=== PATIENT | male | born 1955 | race Caucasian/White ===

== ENCOUNTER 2018-06-09 07:05 | Observation (INO) | payer BC ==
[2018-06-09] MEDS ORDERED: Ketorolac INJ* 30 MG/ML 1 ML VIAL IV PUSH ONE (07:27)
[2018-06-09] MEDS ORDERED: NS 0.9% 1000 ML* 1,000 ML IV ONE ×2 (07:27→09:55)
[2018-06-09] MEDS ORDERED: Ondansetron INJ* 2 MG/ML VIAL IV ONE ×2 (07:27→10:53)
[2018-06-09] MEDS ORDERED: Ketorolac INJ* 30 MG/ML 1 ML VIAL ONE (07:30)
[2018-06-09] MEDS ORDERED: Ondansetron INJ* 2 MG/ML VIAL ONE ×4 (07:30→20:19)
--- NOTE | 2018-06-09 07:34 | ED ---
GI/ HPI - HPI Summary HPI Summary: Patient is a 63 y/o M w/ c/o possible kidney stone. In room, he reports RLQ pain and some nausea, denies groin pain, back pain, dysuria, hematuria. Pain onset 2300 yesterday. Pain is noted to wax and wane but is always present. Patient reports pain was "bad" last night and that he could not sleep due to pain. Pain has lessened since onset. He reports Hx of kidney stones x3-4 times previously. Kidney stones are reported to have passed by themselves previously. Patient's , who was present in room, reports giving patient ibuprofen at 0115 today and 5 mg oxycodone at 0600. Patient denies smoking and any home medications. He denies FMHx of renal disease. Patient has appointment with Dr. Cope at 0900 today, patient is here for pain control. On triage, pain is rated 9/10, nothing is noted to aggravate/alleviate Sx. Allergies reviewed. - History of Current Complaint Chief Complaint: EDAbdPain Time Seen by Provider: 06/09/18 07:19 Stated Complaint: RT FLANK PAIN Hx Obtained From: Patient Onset/Duration: Started Hours Ago - onset 2300 last night, Still Present Timing: Constant - pain waxes and wanes but is reported to be always present Current Severity: Severe - 9/10 Pain Intensity: 9 Location of Pain: RLQ Associated Signs and Symptoms: Positive: Nausea, Abdominal Pain - RLQ, Other: - NEGATIVE: groin pain. Negative: Back Pain, Hematuria, Dysuria Aggravating Factor(s): Nothing Alleviating Factor(s): Nothing - Allergy/Home Medications Allergies/Adverse Reactions: Allergies Allergy/AdvReac Type Severity Reaction Status Date / Time No Known Allergies Allergy Verified 06/09/18 07:13 Home Medications: Home Medications Ibuprofen TAB* [Advil TAB*] 600 mg PO Q6H PRN 06/09/18 [History Confirmed ] buPROPion HCl [Bupropion Xl] 150 mg PO DAILY 06/09/18 [History Confirmed ] oxyCODONE TAB* [Roxycodone TAB 5 mg*] 5 mg PO Q8H PRN 06/09/18 [History Confirmed 06/09/18] PMH/Surg Hx/FS Hx/Imm Hx History: Reports: Hx Kidney Stones Sensory History: Denies: Hx Legally Blind Opthamlomology History: Denies: Hx Legally Blind Infectious Disease History: No Infectious Disease History: Denies: Traveled Outside the [place] in Last 30 Days - Family History Known Family History: Negative: Renal Disease - Social History Alcohol Use: Rare Substance Use Type: Reports: None Smoking Status (MU): Never Smoked Tobacco Review of Systems Positive: Abdominal Pain - RLQ, Nausea Positive: other - POSITIVE: patient reports possible kidney stone NEGATIVE: groin pain . Negative: dysuria, hematuria Positive: Other - NEGATIVE: back pain All Other Systems Reviewed And Are Negative: Yes Physical Exam - Summary Physical Exam Summary: Appearance: Well appearing, no pain distress Skin: warm, dry, reflects adequate perfusion Head/face: normal Eyes: EOMI, ESCOBAR ENT: mucous membranes moist Neck: supple, non-tender Respiratory: some rustling breath sounds at lung bases present, no other abnormal findings noted. Cardiovascular: RRR, pulses symmetrical Abdomen: non-tender, soft Bowel Sounds: present Musculoskeletal: strength/ROM intact; right CVA tenderness is noted. Neuro: normal, sensory motor intact, A&Ox3 Triage Information Reviewed: Yes Vital Signs On Initial Exam: Initial Vitals Temp Pulse Resp BP Pulse Ox 97.4 F 56 16 130/77 100 06/09/18 07:09 06/09/18 07:09 06/09/18 07:09 06/09/18 07:09 06/09/18 07:09 Vital Signs Reviewed: Yes Diagnostics - Vital Signs Vital Signs Temp Pulse Resp BP Pulse Ox 06/09/18 07:09 97.4 F 56 16 130/77 100 - Laboratory Result Diagrams: 06/09/18 07:36 06/09/18 07:36 Lab Statement: Any lab studies that have been ordered have been reviewed, and results considered in the medical decision making process. - CT CT abd/pel CT Interpretation: Positive (See Comments) CT Interpretation Completed By: Radiologist - IMPRESSION: THERE ARE MULTIPLE SMALL BILATERAL RENAL CALCULI. IN ADDITION THERE IS MILD TO MODERATE RIGHT HYDRONEPHROSIS WITH DISTENTION OF THE RIGHT URETER INTO THE PELVIS. THE RIGHT URETER IS NOT WELL-DEFINED DISTALLY ALTHOUGH THERE IS A PROMINENT CALCIFICATION IN THE PELVIS IN THE DISTRIBUTION OF THE URETER POSSIBLY REPRESENTING A DISTAL URETERAL CALCULUS VERSUS A PHLEBOLITH. A RENAL AND BLADDER ULTRASOUND WITH ASSESSMENT OF THE URETEROVESICAL JETS MAYBE HELPFUL IN FURTHER DEFINITION. THIS REPORT WAS REVIEWED BY ED PHYSICIAN. - Ultrasound No standard instances Ultrasound Interpretation: Positive (See Comments) Ultrasound Interpretation Completed By: Radiologist - ABDOMEN/BLADDER US IMPRESSION: #. RIGHT hydronephrosis is traced to a 0.9 cm far distal ureteral stone with corresponding absence of the RIGHT ureteral jet. This report was reviewed by ed physician. Re-Evaluation - Re-Evaluation First Eval Re-Evaluation Time: 08:20 Comment: Patient reports that pain has worsened after lessening briefly; he also states nausea has returned. Additional medications ordered Second Eval Re-Evaluation Time: 10:07 Change: Unchanged Comment: Discussed results of labs and tests with patient; he will be given an ultrasound Third Eval Re-Evaluation Time: 11:57 Change: Unchanged Comment: Patient informed of decision to admit to [facility]; patient understands and is agreeable with this plan. GIGU Course/Dx - Course Course Of Treatment: Patient with history of renal colic presents with right- sided abdominal pain without hematuria. CT scan shows hydronephrosis on that side with possible urinary calculus seen in the pelvis. It was difficult to delineate if this was calculus versus phlebolith. No ultrasound was obtained. There is no blood in the urine. Ultrasound indicates that there is no ureteral jet on that right side and concern for a stone at the UVJ. This was communicated to urology who will see the patient in consultation. They wished for the patient to be admitted through hospitalist service. The hospitalist was contacted and will admit. - Diagnoses Differential Diagnoses - Male: Other - Appendicitis, renal colic, bowel obstruction, UTI/prostatitis, colitis Provider Diagnoses: Renal colic on right side, Obstructive uropathy, Calculi, urethra - Physician Notifications Discussed Care Of Patient With: Gerardo Alston Time Discussed With Above Provider: 11:40 Instructed by Provider To: Other - Patient's case was discussed with Dr. Alston at 1140; he recommends patient be admitted to [facility]. 1151 -- Patient's case discussed with Dr. Duenas. Dr. Duenas accepts patient for admission to [facility]. Discharge - Sign-Out/Discharge Documenting (check all that apply): Patient Departure - admit - Discharge Plan Condition: Good Disposition: ADMITTED TO [facility] - Billing Disposition and Condition Condition: GOOD Disposition: Admitted to [facility] - Attestation Statements Document Initiated by Scribe: Yes Documenting Scribe: Konrad Garcia Provider For Whom Yong is Documenting (Include Credential): Jaime Finch MD Scribe Attestation: IKonrad, scribed for Jaime Finch MD on 06/09/18 at 1441. Scribe Documentation Reviewed: Yes Provider Attestation: The documentation as recorded by the Konrad noriega accurately reflects the service I personally performed and the decisions made by me, Jaime Finch MD
[2018-06-09 07:42] LABS: ABS Basophils 0 10^3/ul (0-0.2); ABS Eosinophils 0 10^3/ul (0-0.6); ABS Lymphocytes 0.6 10^3/ul (1.0-4.8); ABS Monocytes 0.4 10^3/ul (0-0.8); ABS Neutrophils 5.9 10^3/ul (1.5-7.7); ABS Nucleated RBC 0 10^3/ul; Eosinophil % 0.1 % (0-6); Hematocrit 44 % (42-52); Hemoglobin 15.3 g/dl (14.0-18.0); Lymphocyte % 9.1 % (25-47); Mean Corpuscular HGB Conc 35 g/dl (31-36); Mean Corpuscular Hemoglobin 32 pg (27-31); Mean Corpuscular Volume 93 fL (80-94); Mean Platelet Volume 10.2 um3 (7.4-10.4); Nucleated Red Blood Cells % 0.1; Platelet Count 152 10^3/ul (150-450); Red Blood Count 4.76 10^6/ul (4.00-5.40); Red Cell Distribution Width 12 % (10.5-15); White Blood Count 6.9 10^3/ul (3.5-10.8)
[2018-06-09 07:57] LABS: Urine Appearance Clear; Urine Blood Negative (Negative); Urine Color Yellow; Urine Ketones 1+ (Negative); Urine Protein Negative (Negative); Urine Specific Gravity 1.021 (1.010-1.030); Urine Urobilinogen Negative (Negative)
[2018-06-09] MEDS ORDERED: Morphine INJ* 2 MG/ML 1 ML SYRINGE (TWO MG - NEW SYRINGE VERSION) IV ONE (08:21)
[2018-06-09] MEDS ORDERED: Morphine INJ* 4 MG/ML 1 ML SYRINGE (NEW SYRINGE VERSION) ONE (08:27)
--- NOTE | 2018-06-09 09:18 | RAD ---
INDICATION: Right renal colic. COMPARISON: Comparison is made with a prior CT of the abdomen and pelvis from February 16, 2005. TECHNIQUE: A CT scan of the abdomen and pelvis was performed without intravenous and without oral contrast. Contiguous axial sections were obtained from the lung bases through the symphysis pubis. Images were reconstructed in the coronal and sagittal planes. FINDINGS: LUNGS: There is mild dependent bilateral lower lobe subsegmental atelectasis. No pleural effusion is present. LIVER: The liver is normal in size and density. There are several fluid density lesions in the lateral segment of the left hepatic lobe 2 of these are present on the prior exam and have increased in size when is new. These measure up to 1.5 cm in size and are nonspecific finding although likely represent cysts. These can BE further evaluated with a right upper quadrant ultrasound as clinically needed. GALLBLADDER: No calcified gallstones are seen. BILE DUCTS: No intra or extrahepatic ductal distention is appreciated. SPLEEN: The spleen is normal in size without significant focal abnormality. PANCREAS: The pancreas is normal in size. No ductal distention or calcifications are seen. ADRENAL GLANDS: The adrenal glands are normal in size. KIDNEYS: The kidneys are normal in size. There are multiple small bilateral renal calculi measuring between 1 and 3 mm in size. There is dilatation of the right renal calyces, renal pelvis and right ureter which appears dilated at least into the pelvis although is not well visualized distally. There is a large calcification present laterally within the pelvis on the right side measuring 7 x 5 mm in size possibly representing a calculus in the distal ureter alternatively this may be outside of the ureter. There is mild right perinephric stranding. No bladder calculi are seen. AORTA: There is mild ectasia of the abdominal aorta and iliac arteries. LYMPH NODES: No significantly enlarged lymph nodes are seen. BOWEL: The stomach, small and large bowel appear nondistended. The appendix is not well visualized. There is no evidence for inflammatory change in the right lower quadrant. There is a moderate to large amount retained stool. PELVIC ORGANS: No bladder wall thickening is seen. The seminal vesicles appear enlarged bilaterally and unchanged from the prior study. The prostate gland is slightly enlarged measuring 4.8 cm in transverse dimension. PERITONEUM: No free intraperitoneal air or fluid is seen. BONES: There is no evidence for acute fracture. There is suggestion of an old fracture of the left lateral acetabular rim. There is mild to moderate bilateral osteoarthritic change in the hips. IMPRESSION: THERE ARE MULTIPLE SMALL BILATERAL RENAL CALCULI. IN ADDITION THERE IS MILD TO MODERATE RIGHT HYDRONEPHROSIS WITH DISTENTION OF THE RIGHT URETER INTO THE PELVIS. THE RIGHT URETER IS NOT WELL-DEFINED DISTALLY ALTHOUGH THERE IS A PROMINENT CALCIFICATION IN THE PELVIS IN THE DISTRIBUTION OF THE URETER POSSIBLY REPRESENTING A DISTAL URETERAL CALCULUS VERSUS A PHLEBOLITH. A RENAL AND BLADDER ULTRASOUND WITH ASSESSMENT OF THE URETEROVESICAL JETS MAYBE HELPFUL IN FURTHER DEFINITION.
[2018-06-09] MEDS ORDERED: Morphine INJ** 4 MG/ML 1 ML CARPUJECT IV ONE (10:53)
--- NOTE | 2018-06-09 12:07 | RAD ---
Indication: RIGHT flank pain. Assess RIGHT ureteral jet. Comparison: June 09, 2018 CT. Technique: Ultrasound kidneys and urinary bladder. Report: 12.8 x 5.0 x 4.9 cm RIGHT kidney is remarkable for mild hydronephrosis traced to a visualized 0.9 cm maximum dimension far distal RIGHT ureteral stone approximate 1.5 cm from the ureterovesicular junction with corresponding absence of RIGHT ureteral jet. Additional small hyperechoic foci throughout the RIGHT kidney consistent with small renal stones. Normal cortical thickness and echogenicity. Small volume of perinephric fluid near the inferior pole. 12.4 x 6.0 x 4.6 cm LEFT kidney with normal cortical thickness and echogenicity is remarkable for a 0.8 cm cortical medullary junctions cyst inferiorly. No conspicuous LEFT renal stones or hydronephrosis. Preserved LEFT ureteral jet. Prevoid urinary bladder volume estimated at 211 mL. 2.2 mm bladder wall. No focal bladder lesions evident. 4.3 x 3.3 x 4.2 cm prostate for an estimated volume of 31 mL. IMPRESSION: #. RIGHT hydronephrosis is traced to a 0.9 cm far distal ureteral stone with corresponding absence of the RIGHT ureteral jet.
[2018-06-09] MEDS ORDERED: Morphine INJ* 2 MG/ML 1 ML SYRINGE (TWO MG - NEW SYRINGE VERSION) IV PRN ×2 (12:39→14:57)
[2018-06-09] MEDS ORDERED: Ondansetron INJ* 2 MG/ML VIAL IV PRN (12:39)
[2018-06-09] MEDS ORDERED: Morphine INJ* 4 MG/ML 1 ML SYRINGE (NEW SYRINGE VERSION) IV PRN (12:43)
[2018-06-09] MEDS ORDERED: NS 0.9% 1000 ML* 1,000 ML IV SCH (12:45)
[2018-06-09] MEDS ORDERED: Buffered Lidocaine 0.9% SYRIN* 5 ML/SYR SYRINGE INTRADERM ONE (14:55)
[2018-06-09] MEDS ORDERED: Dexamethasone TAB* 4 MG PO ONE (14:55)
[2018-06-09] MEDS ORDERED: Famotidine IV* 10 MG/ML 2 ML (20 mg) IV ONE (14:55)
[2018-06-09] MEDS ORDERED: oxyCODONE/Acetamin 5/325 MG* TAB PO PRN (14:57)
[2018-06-09] MEDS ORDERED: Naloxone* 0.4 MG/ML 1 ML VIAL IV PRN (14:57)
[2018-06-09] MEDS ORDERED: PROCHLORPERAZINE INJ 5 MG/ML 2 ML VIAL IV PRN (14:57)
[2018-06-09] MEDS ORDERED: DiMENhydriNATE IV* 50 MG/ML VIAL IV PUSH PRN (14:57)
[2018-06-09] MEDS ORDERED: fentaNYL* 50 MCG/ML 2 ML VIAL (100 MCG VIAL) IV PRN (14:57)
--- NOTE | 2018-06-09 15:12 | HP ---
ADMISSION HISTORY AND PHYSICAL: DATE OF ADMISSION: 06/09/18 PRIMARY CARE PROVIDER: Dr. Cope. HEALTHCARE PROXY: His . CODE STATUS: Full. SOURCE OF INFORMATION: History obtained from interview with the patient and his , review of past medical records. RELIABILITY: Good. CHIEF COMPLAINT: Right flank pain. HISTORY OF PRESENT ILLNESS: This is a 63-year-old man with past medical history of multiple kidney stones, approximately 3 to 4 times, last episode was 14 to 15 years prior without history of needing stents, they have always passed spontaneously. He has been in his usual state of health until approximately 1.5 months prior to presentation when he started to notice fleeting pain in his right groin that radiated to his penis and then back to his anus that would last for seconds. His pain would occur several times per week and actually resolved over the last 1-1/2 weeks; however, returned yesterday morning and was more intense. The patient's pain was still fleeting, lasted only for seconds; however, around 11 p.m. on 06/08/18, the pain became suddenly severe and constant, still described as right flank pain radiating to his penis and back to his anus. The pain remained there, did not travel. It was described as excruciating sore, aching, and a pressure, and was associated with nausea, vomiting with emesis approximately 20 times overnight. He attempted to have tea or water or any type of food and would vomit immediately. He also felt like he needed to have bowel movement but could not produce a stool. He describes no chest pain, shortness of breath, cough, fevers, which were checked at home, only 97 degrees Fahrenheit. No diaphoresis but did have 1 episode of brief chills that improved with closing the window and getting under a blanket. The pain is in the same side as his previous episodes of nephrolithiasis. He presented to the emergency room, where there was evidence for a distal obstructing nephrolithiasis. He received morphine and Zofran with good relief of pain and the hospitalist service was consulted for admission. PAST MEDICAL HISTORY: Kidney stones multiple times, last episode was 14 to 15 years prior. History of anxiety and history of depression. MEDICATIONS: Wellbutrin 150 mg daily. ALLERGIES: None. FAMILY HISTORY: His sister recently had nephrolithiasis. He has no additional data other than that. His father from a CVA at age 85. SOCIAL HISTORY: He is an active CPA. No tobacco. Rare alcohol, 1 time every several months. He is . REVIEW OF SYSTEMS: As per HPI including right flank pain. No , chest pain , shortness breath, lightheadedness, disequilibrium, headache. All other systems were reviewed and negative. PHYSICAL EXAMINATION GENERAL: Sitting up in bed, interactive, pleasant, in no apparent distress. VITAL SIGNS: In the emergency room, 124/77, respiratory rate 16, heart rate is 60, T-max is 99.6 at 10 a.m., and he is 100% on room air. HEENT: His oropharynx is mildly dry, but clear. He has no scleral icterus. NECK: Non-elevated JVD. No carotid bruits. LUNGS: Clear to auscultation. HEART: He has regular rate and rhythm. No murmurs, rubs, or gallops. ABDOMEN: Soft to palpation. No pain in the area that he identified earlier. EXTREMITIES: Warm and well perfused without clubbing, cyanosis, or edema. NEUROLOGIC: He is alert and oriented x3. His cranial nerves II through XII are intact. He has no CVA tenderness on my exam. DIAGNOSTIC STUDIES/LAB DATA: Labs reviewed: Notable for white blood cell count of 6.9, hemoglobin 15.3, platelets 152. Sodium 137, potassium 4.5, BUN 21 , creatinine is 1.2, glucose 137, lactic acid 1.3. CRP less than 1. Urine is positive for ketones and ascorbic acid. Data reviewed: CT abdomen and pelvis, impression: There are multiple small bilateral renal calculi. In addition, there is a moderate right hydronephrosis with distention of the right ureter into the pelvis. The right ureter is now well-defined distally though there is a prominent calcification in the pelvis in the distribution of the ureter possibly representing a distal ureteral calculus versus a phlebolith. Renal and bladder ultrasound may be helpful. Further report indicates there is a large calcification present laterally within the pelvis on the right side measuring 7 x 5 mm in size. Ultrasound abdomen and bladder, impression: Right hydronephrosis is traced to a 0.9-cm far distal ureteral stone with corresponding absence of right ureteral jet. ASSESSMENT AND PLAN: This is a 63-year-old man with recurrent nephrolithiasis presenting with right flank pain, nausea, and vomiting, found with suspected distal right nephrolithiasis with absence of right ureteral jet. 1. Hydronephrosis, right sided - in the setting of nephrolithiasis, 9-mm stone less likely to pass, although it is distal. His pain has improved, although with substantial amount of morphine. Dr. Alston from Urology has been consulted by the ED. He is currently in the operating room, he will evaluate when capable. Maintain the patient n.p.o. Deliver normal saline at 150 cc per hour for 2 additional liters. Hold on alpha blockers at this time prior to determining whether he will go to the operating room today. Strain urine should he pass the stone. Continue with pain control morphine 4 mg every 4 hours IV and Zofran 4 mg IV as needed, to increase as needed. Care discussed with the patient. 2. Depression and anxiety: Continue home Wellbutrin. 3. DVT prophylaxis. SCDs. Initiate heparin subcu tomorrow should he go to the operating room. TIME SPENT: Greater than 45 minutes was spent in admission of this patient of which greater than half was spent [id number] with the patient. [id number]/CPS #: [id number] JOSEFINA
[2018-06-09] MEDS ORDERED: fentaNYL* 50 MCG/ML 2 ML VIAL (100 MCG VIAL) ONE (17:09)
[2018-06-09] MEDS ORDERED: KETAMINE HCL* 50 MG/ML 10 ML VIAL ONE (17:10)
[2018-06-09] MEDS ORDERED: Midazolam* 1 MG/ML 5 ML VIAL (5 MG) ONE (17:10)
[2018-06-09] MEDS ORDERED: Iohexol 180 (CONTRAST) 10 ML SDV IV ONE (18:19)
[2018-06-09] MEDS ORDERED: cefTRIAXone(*) 1 GM ADVAN/BAG ONE (18:37)
[2018-06-09] MEDS ORDERED: EPHEDrine (Pressors)* 50 MG/ML VIAL ONE (19:07)
[2018-06-09] MEDS ORDERED: Famotidine IV* 10 MG/ML 2 ML (20 mg) ONE (19:07)
[2018-06-09] MEDS ORDERED: Propofol* 10 MG/ML 20 ML BTL IV PUSH ONE (19:07)
[2018-06-09] MEDS ORDERED: PROCHLORPERAZINE INJ 5 MG/ML 2 ML VIAL ONE (19:07)
[2018-06-09] MEDS ORDERED: Glycopyrrolate IV* 0.2 MG/ML 1 ML VIAL ONE (19:07)
[2018-06-09 21:34] VITALS: BP 122/77
--- NOTE | 2018-06-10 07:28 | RAD ---
INDICATION: Stent placement. COMPARISON: Correlation is made with a prior CT of the abdomen and pelvis and a prior renal and bladder ultrasound from June 09, 2018. TECHNIQUE: 7 seconds of intermittent fluoroscopic guidance were provided and 6 spot films of the abdomen were centered on the right side. FINDINGS: There is partial opacification of the right renal collecting system. Subsequently there is placement of a double-J stent catheter on the right side which demonstrates normal course. IMPRESSION: INTRAOPERATIVE CONTROL FILMS. CPT II Codes: G9500 R4
[2018-06-10] MEDS ORDERED: BuPROPion XL* 150 MG TAB.XL PO SCH (09:00)
--- NOTE | 2018-06-10 12:46 | OP ---
CC: Dr. Jacky Cope * DATE OF OPERATION: 06/09/18 - ROOM #350 DATE OF : 53 SURGEON: Gerardo Alston MD ANESTHESIOLOGIST: James Avendaño MD ANESTHESIA: General. PRE-OP DIAGNOSES: 1. Distal right ureteral calculus (6 mm). 2. Renal colic due to above. POST-OP DIAGNOSES: 1. Distal right ureteral calculus (6 mm). 2. Renal colic due to above. OPERATIVE PROCEDURE: 1. Cystoscopy. 2. Right ureteroscopy, laser lithotripsy, and extraction of right ureteral calculus. 3. Right retrograde pyelography and placement of right ureteral stent (6-Egyptian ). INDICATIONS: Mr. Hurst is a 63-year-old white male who presented to the emergency room today with a one-day history of right renal colic. He had no fever or chills. Noncontrast CT of the abdomen and pelvis showed a 6-mm calculus in the distal right ureter with adjacent ureteral wall edema. The pain was severe in the emergency room and was difficult to control. The patient was admitted to the medical service. His pain subsided, but the stone was not passed. Considering the above history and the size of the stone and the ureteral wall edema, the above procedure was advised and accepted. PATHOLOGY AT CYSTOSCOPY: The penile and bulbar urethrae looked normal. The prostatic urethra measured 2.5 cm in length and there was only [id number] obstruction by prostate enlargement. Examination of the bladder showed normal bladder mucosa. No suspicious bladder lesions were seen. No calculi or diverticula were noted. The ureteral orifices looked normal. Upon right ureteroscopy, a 6-mm calculus that had the gross appearance of calcium oxalate stone was noted in the distal ureter about 2 cm proximal to the orifice. There was dilatation and some tortuosity of the ureter proximal to the stone. DESCRIPTION OF PROCEDURE: After successful general anesthesia, the patient was placed in the lithotomy position and was prepped and draped for cystoscopy. Cystoscopy was performed. The bladder was carefully inspected and the above findings were noted. A flexible-tip guidewire was introduced into the right orifice and positioned in the area of the renal pelvis. A 6.5-semirigid tapered ureteroscope was then passed inside the bladder under vision. A flexible-tipped basket was then introduced through the port of the ureteroscope and the flexible tip was introduced into the right ureter alongside the guidewire. That allowed the atraumatic introduction of the ureteroscope inside the ureter. The calculus was identified. It was engaged with the basket. The stone was felt to be too large to extract without fragmentation. A size 550 micron laser fiber was introduced through the other port of the ureteroscope and while the stone was engaged in the basket, it was broken into multiple fragments. The fragments were then extracted and sent for stone analysis. After a final inspection, which showed no significant residual stone fragments and intact ureteral wall, the ureteroscope was removed. Retrograde pyelography was then performed. A size 6-Egyptian stent was then placed with the proximal end coiling in the renal pelvis and the distal end coiling inside the bladder. There was good drainage of contrast from the kidney and no extravasation. The bladder was then emptied and the cystoscope was removed. Rectal examination was then performed for prostate exam. The prostate was minimally enlarged and did not feel suspicious. The patient tolerated the procedure well and left the operating room in good condition. The plan is to leave the stent in place for about 7 to 10 days. It will be removed in the office under local anesthesia. [id number]/CPS #: [id number] MTDD
== END 2018-06-09 21:20 | disposition home or self-care (01) ==
LOC: ED 07:05 → SSU 13:11 → INTOOBSV 13:11 → SSU 14:48
PROVIDERS: ADMIT Internal Medicine; ATTEND Urology
PROC: 0T768DZ Dilation of Right Ureter with Intraluminal Device, Via Natural or Artificial Opening Endoscopic (ICD-10-PCS; 2018-06-09)
PROC: 0TC08ZZ Extirpation of Matter from Right Kidney, Via Natural or Artificial Opening Endoscopic (ICD-10-PCS; 2018-06-09)
PROC: BT1DZZZ Fluoroscopy of Right Kidney, Ureter and Bladder (ICD-10-PCS; 2018-06-09)
PROC: 0WHR8YZ Insertion of Other Device into Genitourinary Tract, Via Natural or Artificial Opening Endoscopic (ICD-10-PCS; 2018-06-09)
PROC: 0TF38ZZ Fragmentation in Right Kidney Pelvis, Via Natural or Artificial Opening Endoscopic (ICD-10-PCS; principal; 2018-06-09 18:00)
DX: N13.2 Hydronephrosis with renal and ureteral calculous obstruction (principal); Z87.442 Personal history of urinary calculi; F41.9 Anxiety disorder, unspecified; F32.9 Major depressive disorder, single episode, unspecified
CPT/HCPCS: 36415; 74176; 74420; 76770; 80053; 81003; 82365; 83605; 83690; 85025; 86140; 88300; 96361; 96374; 96375; 99284; G0378; J0696; J0780; J1885; J2250; J2270; J2405; J2704; J3010